=== PATIENT | female | born 1985 | race Caucasian/White ===

== ENCOUNTER 2019-08-28 08:37 | Day surgery (SDC) | payer BC ==
[2019-08-27 14:16] VITALS: BMI 22.3
[~2019-08-28 08:37] MED LIST: LACTATED RINGERS SOLUTION 1,000 ML IV SCH; ONDANSETRON 4 MG/2 ML VIAL IVPUSH PRN; oxyCODONE HCL 5 MG TABLET PO PRN
--- NOTE | 2019-08-28 09:18 | HP ---
Admitting History and Physical - Admission History of Present Illness: 33 yo with MAB diagnosed on ultrasound, measuring 9 wks Desires surgical evacuation History Source: Patient Limitations to Obtaining History: No Limitations - Past Medical History Cardiovascular: No: HTN Pulmonary: No: Asthma ...LMP: 06/12/19 - Past Surgical History Past Surgical History: Yes: None - Smoking History Smoking history: Never smoked Have you smoked in the past 12 months: No - Alcohol/Substance Use Hx Alcohol Use: Yes (occas) Home Medications - Allergies Allergies/Adverse Reactions: Allergies Allergy/AdvReac Type Severity Reaction Status Date / Time No Known Drug Allergies Allergy Verified 08/27/19 14:19 - Home Medications Home Medications: Ambulatory Orders Ibuprofen [Advil -] 200 mg PO PRN PRN 08/27/19 Physical Examination Vital Signs: Vital Signs Temperature 98.2 F 08/28/19 09:03 Pulse Rate 98 H 08/28/19 09:03 Respiratory Rate 20 08/28/19 09:03 Blood Pressure 115/68 08/28/19 09:03 O2 Sat by Pulse Oximetry (%) 100 08/28/19 09:04 Assessment/Plan 33 yo 9 wk MAB 1. Consents reviewed and signed 2. Routine labs reviewed 3. Rh positive 4. Doxycycline special education preschool teacher to OR 5. Will proceed to OR
[2019-08-28] MEDS ORDERED: DEXAMETHASONE SOD PHOSPHATE 4 MG/1 ML VIAL ONE (09:33)
[2019-08-28] MEDS ORDERED: KETOROLAC TROMETHAMINE 30 MG/1 ML VIAL ONE (09:33)
[2019-08-28] MEDS ORDERED: MIDAZOLAM HCL 2 MG/2 ML SINGLE DOSE VIAL ONE ×2 (09:33→10:26)
[2019-08-28] MEDS ORDERED: PROPOFOL 20 ML ONE (09:33)
[2019-08-28] MEDS ORDERED: LIDOCAINE HCL/PF 2% SDV 5ML VIAL ONE (09:34)
[2019-08-28] MEDS ORDERED: DOXYCYCLINE INJECTION 100 MG in DEXTROSE 5%-WATER - 100 ML IVPB ONE (10:00)
[2019-08-28] MEDS ORDERED: DOXYCYCLINE HYCLATE 100 MG VIAL IVPB ONE (10:25)
[2019-08-28] MEDS ORDERED: ACETAMINOPHEN 1000 MG/100 ML VIAL (NON FORMULARY) IVPB ONE ×2 (11:15→11:31)
[2019-08-28] MEDS ORDERED: ACETAMINOPHEN INJECTION 100 ML IVPB ONE (11:22)
--- NOTE | 2019-08-28 12:05 | OP ---
Operative Note - Note: Operative Date: 08/28/19 Pre-Operative Diagnosis: Missed 9 weeks Operation: suction dilation and curettage Findings: cervix dilated, bedside ultrasound with thin endometrial stripe at the end of the procedure Post-Operative Diagnosis: Same as Pre-op Surgeon: Malu Meléndez Anesthesiologist/[employer]: Vianca Ordonez Anesthesia: General Specimens Removed: Products of conception Estimated Blood Loss (mls): 50 Fluid Volume Replaced (mls): 500 Operative Report Dictated: Yes
[2019-08-28 19:01] VITALS: TEMP 97.9
[2019-08-28 19:06] VITALS: BP 112/68; PULSE 77
--- NOTE | 2019-08-28 21:04 | OP ---
DATE OF OPERATION: 08/28/2019 ATTENDING PHYSICIAN RESPONSIBLE FOR SIGNING REPORT: Malu Meléndez MD PREOPERATIVE DIAGNOSIS: Missed . POSTOPERATIVE DIAGNOSIS: Missed . SURGEON: Malu Meléndez MD ANESTHESIOLOGIST: Vianca Ordonez MD SPECIMENS REMOVED: Products of conception. ESTIMATED BLOOD LOSS: 50. FLUIDS GIVEN: 500. Patient is a 33-year-old, 2, para 1 with a history of missed at 9 weeks, measuring 9 weeks, presenting desiring surgical management. She was counseled regarding risks, benefits, alternatives, and complications to procedure including infection, bleeding, damage to surrounding organs such as bowel or bladder, uterine perforation. She expressed understanding and was brought to the operating room. When anesthesia was found to be adequate, patient was prepped and draped in normal sterile fashion, placed in dorsal lithotomy position. A weighted speculum was placed in the patient's vagina. Anterior vagina was retracted using a retractor. The anterior lip of the cervix was grasped using an Allis clamp. The cervix was noted to be dilated, and products were noted to be removed and sent to pathology. A size 7 curved curette was placed in the intrauterine cavity, and the suction curette was performed with an operating suction of approximately 70 mmHg. Approximately 4 passes were performed. A thin endometrial stripe was confirmed on a bedside ultrasound. Gentle sharp curetting was performed. Good hemostasis was noted. All instruments removed from the patient's vagina. Patient was awoken from anesthesia and brought to recovery room in stable condition. Patient tolerated the procedure well. Chris [id number]
--- NOTE | 2019-08-30 11:41 | PATH ---
Surgical Pathology Report Patient Name: NILESH ARRIAGA Med. Rec. #: [id number] /Age/Gender: 1985 (Age: 33) / F Account: [id number] Location: [facility] Taken: 08/28/2019 Received: 08/28/2019 Reported: 08/30/2019 Physicians: Malu Meléndez Specimen(s) Received PRODUCTS OF CONCEPTION Clinical History Missed Final Diagnosis PRODUCTS OF CONCEPTION: CHORIONIC VILLI PRESENT, CONSISTENT WITH PRODUCTS OF CONCEPTION. Electronically Signed Trevor Self M.D. Gross Description Received in formalin labeled with "products of conception" are multiple irregular dark red soft tissue with focal villous structure measuring 4.0 x 3.2 x 2.0 cm in aggregate. Scrap Crane Operator portions submitted in 2 cassettes KWS/08/28/2019 sullos/08/28/2019
== END 2019-08-28 13:00 | disposition home or self-care (01) ==
LOC: JASU-SURG 08:37
PROVIDERS: ATTEND Obstetrics & Gynecology
PROC: 10D17ZZ Extraction of Products of Conception, Retained, Via Natural or Artificial Opening (ICD-10-PCS; principal; 2019-08-28 10:00)
DX: O02.1 Missed abortion (principal)
CPT/HCPCS: 86850; 86900; 86901; 88305-TC; 94760; J0131